=== PATIENT | female | born 1950 | race Two or more races ===

== ENCOUNTER 2023-06-02 18:08 | Emergency (ER) | payer OTHER, MEDICAID ==
[~2023-06-02] VITALS: Ht 152.4 cm; Wt 61.2 kg
[2023-06-02 18:16] VITALS: BP 148/81; TEMP 98.1
[2023-06-02] MEDS ORDERED: PANTOPRAZOLE 40 MG TABLET.DR PO ONE (18:30)
[2023-06-02] MEDS ORDERED: LIDOCAINE VISCOUS 2% UD 15 ML UDC MM ONE (18:30)
[2023-06-02] MEDS ORDERED: MAG HYDROX/AL HYDROX/SIMETH 30 ML UDC PO ONE (18:30)
[2023-06-02] MEDS ORDERED: MAG-55 PO (18:31)
[2023-06-02] MEDS ORDERED: PANT20TA2 PO (18:31)
[2023-06-02] MEDS ORDERED: MAG HYDROX/AL HYDROX/SIMETH 30 ML UDC ONE (18:47)
[2023-06-02 19:12] VITALS: O2SAT 100
== END 2023-06-02 19:15 | disposition home or self-care (01) ==
LOC: ER 18:10
DX: K21.00 Gastro-esophageal reflux disease with esophagitis, without bleeding (principal); Z79.899 Other long term (current) drug therapy